=== PATIENT | female | born 1985 ===

== ENCOUNTER 2019-06-27 15:48 | Outpatient (CLI) | payer BC ==
--- NOTE | 2019-06-30 03:20 | Ultrasound Report ---
Reason: PAPILLARY CARCINOMA Procedure Date: 06/27/2019 Accession Number: [id number] / [id number] Procedure: US - Head or Neck Soft Tissue CPT Code: Final Report FULL RESULT: EXAM: THYROID ULTRASOUND EXAM DATE: 06/27/2019 04:26 PM. CLINICAL HISTORY: PAPILLARY CARCINOMA. COMPARISON: None. TECHNIQUE: Real time sonographic imaging of the thyroid was performed by the patient account liaison. Multiple treasury representative static images were saved for review. FINDINGS: THYROID GLAND: Status post thyroidectomy. No residual thyroid tissue is seen. No recurrent mass is present. LYMPH NODES: No adenopathy demonstrated in the central or lateral compartment. OTHER: None. IMPRESSION: No evidence of lymphadenopathy. Management recommendations are based on 2015 [place] [employer] Management Guidelines for Adult Patients with Thyroid Nodules and Differentiated Thyroid Cancer. RADIA
== END 2019-06-27 15:49 | disposition home or self-care (01) ==
LOC: DI 15:48
PROVIDERS: ATTEND Registered Nurse
DX: C73 Malignant neoplasm of thyroid gland (principal)
CPT/HCPCS: 76536

== ENCOUNTER 2019-07-16 15:27 | Outpatient (CLI) | payer BC ==
[2019-07-16 15:55] LABS: BASOPHILS % (AUTO) 0.6 %; EOSINOPHILS # (AUTO) 0.1 10^3/uL (0.0-0.7); EOSINOPHILS % (AUTO) 1.3 %; HGB - HEMOGLOBIN 13.4 g/dL (12.0-16.0); LYMPHOCYTES % (AUTO) 41.7 %; MEAN CORPUSCULAR HEMOGLOBIN 29.2 pg (27.0-31.0); MEAN CORPUSCULAR HGB CONC 32.8 g/dL (32.0-36.0); MEAN CORPUSCULAR VOLUME 88.9 fL (81.0-99.0); MEAN PLATELET VOLUME 9.8 fL (7.9-10.8); MONOCYTES # (AUTO) 0.4 10^3/uL (0.0-1.0); MONOCYTES % (AUTO) 4.9 %; NEUTROPHILS # (AUTO) 3.7 10^3/uL (1.5-6.6); NEUTROPHILS % (AUTO) 51.2 %; PLT - PLATELET COUNT 302 10^3/uL (130-450); RED BLOOD COUNT 4.59 10^6/uL (4.20-5.40); RED CELL DISTRIBUTION WIDTH 12.7 % (12.0-15.0); WHITE BLOOD COUNT 7.2 x10^3/uL (4.8-10.8)
[2019-07-16 16:01] LABS: ALBUMIN 4.1 g/dL (3.2-5.5); ALBUMIN/GLOBULIN RATIO 1.5 (1.0-2.2); BILIRUBIN,TOTAL 0.6 mg/dL (0.2-1.0); CALCIUM 9.1 mg/dL (8.5-10.3); TOTAL PROTEIN 6.8 g/dL (6.7-8.2)
== END 2019-07-16 15:28 | disposition home or self-care (01) ==
LOC: LAB 15:27
PROVIDERS: ATTEND Registered Nurse
DX: N63.0 Unspecified lump in unspecified breast (principal); C73 Malignant neoplasm of thyroid gland
CPT/HCPCS: 36415; 80053; 84443; 85025

== ENCOUNTER 2019-09-22 09:02 | Outpatient (CLI) | payer MEDICAID ==
--- NOTE | 2019-09-22 10:19 | Ultrasound Report ---
Reason: BREAST LUMP OR MASS Procedure Date: 09/22/2019 Accession Number: [id number] / [id number] Procedure: US - Breast Unilateral Limited CPT Code: Final Report FULL RESULT: EXAM: Breast Unilateral Limited Left DATE: 09/22/2019 9:57 AM CLINICAL HISTORY: BREAST LUMP OR MASS FOR FOLLOW-UP. Patient has a history of excision of 2 fibroadenomas from the left breast 2:00 position 4 cm from the nipple with one tiny residual nodule still present by ultrasound in this location. COMPARISON: Left breast ultrasound 02/05/2017, 02/12/2017, 09/10/2017, 04/19/2018, 11/26/2018. Mammogram 02/12/2017. TECHNIQUE: Targeted ultrasound was performed of the left breast in the area of clinical concern at 2 o'clock and 4 cm distance from the nipple. Color Doppler was employed as appropriate. FINDINGS: An ovoid 7 x 6 x 3 mm avascular hypoechoic nodule against the chest wall appears stable compared with the 11/26/2018 ultrasound. A second similar-appearing nodule is seen at the 3:30 position 4 cm from the nipple measuring 4 x 3 x 2 mm. No suspicious features are identified in either nodule. IMPRESSION: Probably benign findings left breast RECOMMENDATION: Follow-up left breast ultrasound in 12 months. BIRADS CATEGORY 3: Probably benign RADIA
== END 2019-09-22 09:03 | disposition home or self-care (01) ==
LOC: DI 09:02
PROVIDERS: ATTEND Registered Nurse
DX: N63.21 Unspecified lump in the left breast, upper outer quadrant (principal); N63.23 Unspecified lump in the left breast, lower outer quadrant
CPT/HCPCS: 76642

== ENCOUNTER 2019-10-07 08:00 | Outpatient (CLI) | payer MEDICAID | END 2019-10-07 23:59 | disposition home or self-care (01) | LOC: COV 08:00 | PROVIDERS: ATTEND Family Medicine | DX: R50.9 Fever, unspecified (principal) | CPT/HCPCS: 81599 ==

== ENCOUNTER 2020-10-07 09:51 | Outpatient (CLI) | payer MEDICAID ==
[2020-10-07 10:42] LABS: THYROID STIMULATING HORMONE 2.7 uIU/mL (0.34-5.60)
== END 2020-10-07 09:52 | disposition home or self-care (01) ==
LOC: LAB 09:51
PROVIDERS: ATTEND Registered Nurse
DX: E03.9 Hypothyroidism, unspecified (principal)
CPT/HCPCS: 36415; 84443

== ENCOUNTER 2021-01-31 13:17 | Outpatient (CLI) | payer MEDICAID ==
[2021-02-02 14:10] LABS: NIL 0.02 IU/mL; TB1-NIL 0.01 IU/mL; TB2-NIL 0.01 IU/mL
== END 2021-01-31 13:18 | disposition home or self-care (01) ==
LOC: LAB 13:17
PROVIDERS: ATTEND Emergency Medicine
DX: Z00.00 Encounter for general adult medical examination without abnormal findings (principal)
CPT/HCPCS: 86480

== ENCOUNTER 2021-03-14 12:22 | Emergency (ER) | payer MEDICAID ==
[2021-03-14 12:35] VITALS: BP 133/75
[2021-03-14] MEDS ORDERED: LIDOCAINE TOPICAL 4% 50 ML BOTTLE MM STA (13:10)
--- NOTE | 2021-03-14 13:36 | ED Physician Documentation ---
History of Present Illness - Stated complaint Stated Complaint: THROAT OBSTRUCTION - Chief complaint Chief Complaint: General - History obtained from History obtained from: Patient - History of Present Illness Pain level max: 3 Pain level now: 2 - Additonal information Additional information: Patient is a 35-year-old female who presents to the emergency department stating she feels like she has had a piece of cantaloupe stuck in her throat for the past 2 to 3 days. She states there is a burning sensation in the back of her throat. She is eating, drinking and speaking without difficulty. Worse with swallowing, nothing makes it better. Review of Systems Constitutional: denies: Fever, Chills GI: denies: Vomiting, Diarrhea Musculoskeletal: denies: Neck pain, Back pain Neurologic: denies: Headache PD PAST MEDICAL HISTORY - Past Medical History Past Medical History: Yes Cardiovascular: None Respiratory: None Neuro: Headaches Endocrine/Autoimmune: HyPOthyroidism GI: None METERMAN: Endometriosis : None HEENT: None Psych: None Musculoskeletal: None Derm: None - Present Medications Home Medications: Ambulatory Orders Medication Instructions Recorded Confirmed Clobetasol 0.05% Oint [Temovate 1 applic TOP BID 03/14/21 03/14/21 0.05% Oint] Levothyroxine [Synthroid] 112 mcg PO QDAC 03/14/21 03/14/21 Liothyronine [Cytomel] 5 mcg PO QDAC 03/14/21 03/14/21 - Allergies Allergies/Adverse Reactions: Allergies Allergy/AdvReac Type Severity Reaction Status Date / Time No Known Drug Allergies Allergy Verified 03/14/21 12:31 - Social History Does the pt smoke?: No Smoking Status: Never smoker Does the pt drink ETOH?: Yes Does the pt have substance abuse?: No - Immunizations Immunizations are current?: Yes PD ED PE NORMAL - Vitals Vital signs reviewed: Yes - General General: Alert and oriented X 3, No acute distress - HEENT HEENT: Moist mucous membranes, Pharynx benign - Neck Neck: Supple, no meningeal sign - Cardiac Cardiac: RRR - Respiratory Respiratory: No respiratory distress, Clear bilaterally - Derm Derm: Warm and dry - Neuro Neuro: Alert and oriented X 3 Results - Vitals Vitals: Vital Signs - 24 hr 03/14/21 12:31 Temperature 36.5 C Heart Rate 85 Respiratory 16 Rate Blood Pressure 133/75 H O2 Saturation 100 Oxygen O2 Source Room air PD MEDICAL DECISION MAKING - ED course Complexity details: considered differential, d/w patient ED course: Lidocaine was nebulized to numb the oropharynx. The glide scope was inserted and the vocal cords visualized. No visible foreign bodies. Patient tolerated well. We will continue supportive care at home. Symptoms resolved with the li docaine. Patient counseled regarding signs and symptoms for which I believe and urgent re-evaluation would be necessary. Patient with good understanding of and agreement to plan and is comfortable going home at this time This document was made in part using voice recognition software. While efforts are made to proofread this document, sound alike and grammatical errors may occur. Departure - Departure Disposition: 01 Home, Self Care Clinical Impression: Abrasion of pharynx Qualifiers: Encounter type: initial encounter Qualified Code(s): S10.11XA - Abrasion of throat, initial encounter Condition: Good Instructions: ED Abrasion Pharyngeal Follow-Up: Patricia Rangel ARNP [Primary Care Provider] - As Needed Comments: There is no foreign body visible today on your evaluation. This should improve over the next few days. Return if you worsen.
== END 2021-03-14 13:59 | disposition home or self-care (01) ==
LOC: ED 12:22
DX: S10.11XA Abrasion of throat, initial encounter (principal); X58.XXXA Exposure to other specified factors, initial encounter
CPT/HCPCS: 99282

== ENCOUNTER 2021-06-29 11:15 | Outpatient (CLI) | payer MEDICAID ==
[2021-06-29 11:40] LABS: BASOPHILS # (AUTO) 0.1 10^3/uL (0.0-0.1); BASOPHILS % (AUTO) 0.7 %; EOSINOPHILS # (AUTO) 0.4 10^3/uL (0.0-0.7); EOSINOPHILS % (AUTO) 6.2 %; HCT - HEMATOCRIT 44.8 % (37.0-47.0); HGB - HEMOGLOBIN 14.7 g/dL (12.0-16.0); LYMPHOCYTES # (AUTO) 2.4 10^3/uL (1.5-3.5); LYMPHOCYTES % (AUTO) 33.2 %; MEAN CORPUSCULAR HEMOGLOBIN 28.6 pg (27.0-31.0); MEAN CORPUSCULAR HGB CONC 32.8 g/dL (32.0-36.0); MEAN CORPUSCULAR VOLUME 87.2 fL (81.0-99.0); MEAN PLATELET VOLUME 9.9 fL (7.9-10.8); MONOCYTES # (AUTO) 0.4 10^3/uL (0.0-1.0); MONOCYTES % (AUTO) 5.1 %; NEUTROPHILS # (AUTO) 3.9 10^3/uL (1.5-6.6); NEUTROPHILS % (AUTO) 54.7 %; PLT - PLATELET COUNT 323 10^3/uL (130-450); RED BLOOD COUNT 5.14 10^6/uL (4.20-5.40); RED CELL DISTRIBUTION WIDTH 12.7 % (12.0-15.0); WHITE BLOOD COUNT 7.1 x10^3/uL (4.8-10.8)
[2021-06-29 11:51] LABS: ALBUMIN 4.2 g/dL (3.2-5.5); ALBUMIN/GLOBULIN RATIO 1.4 (1.0-2.2); BILIRUBIN,TOTAL 0.5 mg/dL (0.2-1.0); CALCIUM 9.3 mg/dL (8.5-10.3); CREATININE 0.9 mg/dL (0.4-1.0); POTASSIUM 4.1 mmol/L (3.5-5.0); TOTAL PROTEIN 7.1 g/dL (6.7-8.2)
[2021-06-29 12:06] LABS: THYROID STIMULATING HORMONE 0.5 uIU/mL (0.34-5.60)
== END 2021-06-29 11:16 | disposition home or self-care (01) ==
LOC: LAB 11:15
PROVIDERS: ATTEND Registered Nurse
DX: C73 Malignant neoplasm of thyroid gland (principal); Z13.228 Encounter for screening for other metabolic disorders; E03.9 Hypothyroidism, unspecified
CPT/HCPCS: 36415; 80053; 82306; 84443; 85025

== ENCOUNTER 2021-09-02 14:09 | Outpatient (CLI) | payer MEDICAID, OTHER ==
--- NOTE | 2021-09-04 15:48 | XRAY Report ---
PROCEDURE: Spine Scoliosis Study 2-3V INDICATIONS: SCOLIOSIS TECHNIQUE: Frontal and lateral standing views of the spine acquired. COMPARISON: None. FINDINGS: There is S-shaped scoliosis. The main curvature is in the thoracic spine measuring 25 degree toward right with apex at T9. Secondary left curvature is seen in lumbar spine measuring 17 degree with apex at L2-L3. Bone morphology: No developmental anomalies of the ribs or spine. 7 cervical vertebrae are present. 12 rib-bearing thoracic type vertebrae noted. 5 [id number] lumbar vertebrae are present. No s uspicious bony lesions. IMPRESSION: 1. Scoliosis measuring 25 degree with apex at T9. Reviewed by: Sharona Leahy MD on 09/04/2021 3:47 PM PST Approved by: Sharona Leahy MD on 09/04/2021 3:47 PM PST Station ID: [id number]
== END 2021-09-02 14:10 | disposition home or self-care (01) ==
LOC: DI.N 14:09
PROVIDERS: ATTEND Registered Nurse
DX: M41.9 Scoliosis, unspecified (principal)

== ENCOUNTER 2021-10-06 17:55 | Emergency (ER) | payer OTHER, MEDICAID ==
--- NOTE | 2021-10-06 17:57 | ED Physician Documentation ---
PD HPI UPPER EXT INJURY - Stated complaint Stated Complaint: NEEDLESTICK - History obtained from History obtained from: Patient - History of Present Illness Location: Left, Hand Type of injury: Puncture wound (she was placing used needle into sharp container and stuck tip into thenar area. No numbness nor weakness. 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 : None HEENT: None Psych: None Musculoskeletal: None Derm: None - Present Medications Home Medications: Ambulatory Orders Medication Instructions Recorded Confirmed Clobetasol 0.05% Oint [Temovate 1 applic TOP BID 03/14/21 03/14/21 0.05% Oint] Levothyroxine [Synthroid] 112 mcg PO QDAC 03/14/21 03/14/21 Liothyronine [Cytomel] 5 mcg PO QDAC 03/14/21 03/14/21 - Allergies Allergies/Adverse Reactions: Allergies Allergy/AdvReac Type Severity Reaction Status Date / Time No Known Drug Allergies Allergy Verified 10/06/21 18:06 - Social History Does the pt smoke?: No Smoking Status: Never smoker Does the pt drink ETOH?: Yes Does the pt have substance abuse?: No - Immunizations Immunizations are current?: Yes PD ED PE NORMAL - Vitals Vital signs reviewed: Yes - General General: Alert and oriented X 3, No acute distress, Well developed/nourished - Derm Derm: Normal color, Warm and dry - Extremities Extremities: Other (barely visible point injury of skin at thenar area. No bleeding. Not tender. ) - Neuro Neuro: Alert and oriented X 3, No motor deficit, No sensory deficit Results - Vitals Vitals: Vital Signs - 24 hr 10/06/21 18:02 Temperature 36.0 C L Heart Rate 88 Respiratory 16 Rate Blood Pressure 142/80 H O2 Saturation 100 Oxygen O2 Source Room air - Labs Labs: Laboratory Tests 10/06/21 10/06/21 18:13 18:13 WBC 7.2 RBC 5.05 Hgb 14.5 Hct 44.1 MCV 87.3 MCH 28.7 MCHC 32.9 RDW 12.5 Plt Count 353 MPV 9.9 Sodium 137 Potassium 3.5 Chloride 102 Carbon Dioxide 25 Anion Gap 10.0 BUN 12 Creatinine 0.9 Estimated GFR (MDRD) 71 L Glucose 145 H Calcium 9.2 Total Bilirubin 0.5 AST 18 ALT 19 Alkaline Phosphatase 40 L Total Protein 7.3 Albumin 4.3 Globulin 3.0 Albumin/Globulin Ratio 1.4 PD MEDICAL DECISION MAKING - ED course Complexity details: considered differential (the source patient for whom the IV was started was still in ER. 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 We did test the source patient for HIV and hepatitis and those should result in a day or 2. At this point the wound does not appear to need any particular dressings or attention. Recheck if it develops any signs of infection. Employee health will likely follow-up with you over the next few days. Discharge Date/Time: 10/06/21 18:31
[2021-10-06 18:06] VITALS: BP 142/80
[2021-10-06 18:22] LABS: HCT - HEMATOCRIT 44.1 % (37.0-47.0); HGB - HEMOGLOBIN 14.5 g/dL (12.0-16.0); MEAN CORPUSCULAR HEMOGLOBIN 28.7 pg (27.0-31.0); MEAN CORPUSCULAR HGB CONC 32.9 g/dL (32.0-36.0); MEAN CORPUSCULAR VOLUME 87.3 fL (81.0-99.0); MEAN PLATELET VOLUME 9.9 fL (7.9-10.8); RED BLOOD COUNT 5.05 10^6/uL (4.20-5.40); RED CELL DISTRIBUTION WIDTH 12.5 % (12.0-15.0); WHITE BLOOD COUNT 7.2 x10^3/uL (4.8-10.8)
[2021-10-06 18:33] LABS: ALBUMIN 4.3 g/dL (3.2-5.5); ALBUMIN/GLOBULIN RATIO 1.4 (1.0-2.2); BILIRUBIN,TOTAL 0.5 mg/dL (0.2-1.0); CALCIUM 9.2 mg/dL (8.5-10.3); CREATININE 0.9 mg/dL (0.4-1.0); POTASSIUM 3.5 mmol/L (3.5-5.0); TOTAL PROTEIN 7.3 g/dL (6.7-8.2)
[2021-10-08 09:31] LABS: HEPATITIS C ANTIBODY NON-REACTIVE (NON-REACTIVE)
[2021-10-10 16:41] LABS: HIV AG/AB 4TH GEN NON-REACTIVE (NON-REACTIVE)
== END 2021-10-06 18:31 | disposition home or self-care (01) ==
LOC: ED 17:55
DX: S61.432A Puncture wound without foreign body of left hand, initial encounter (principal); W46.1XXA Contact with contaminated hypodermic needle, initial encounter; Y93.F9 Activity, other caregiving; Y92.538 Other ambulatory health services establishments as the place of occurrence of the external cause; Y99.0 Civilian activity done for income or pay; Z77.9 Other contact with and (suspected) exposures hazardous to health
CPT/HCPCS: 36415; 80053; 85027; 86317; 86803; 87389; 99281; 99283

== ENCOUNTER 2021-12-07 11:00 | Outpatient (CLI) | payer BC, OTHER, MEDICAID ==
[2021-12-07 11:40] LABS: T4 (THYROXINE) 12.34 ug/dL (6.09-12.23)
[2021-12-07 11:44] LABS: THYROID STIMULATING HORMONE 0.35 uIU/mL (0.34-5.60)
== END 2021-12-07 11:01 | disposition home or self-care (01) ==
LOC: LAB 11:00
PROVIDERS: ATTEND Registered Nurse
DX: E03.9 Hypothyroidism, unspecified (principal)
CPT/HCPCS: 36415; 84436; 84443; 84480

== ENCOUNTER 2022-02-04 08:00 | Outpatient (CLI) | payer BC, MEDICAID, OTHER ==
--- NOTE | 2022-02-04 15:22 | XRAY Report ---
PROCEDURE: Wrist 3 View LT INDICATIONS: LEFT WRIST PAIN TECHNIQUE: 3 views of the wrist were acquired. COMPARISON: None FINDINGS: Bones: No fractures or dislocations. No suspicious bony lesions. Soft tissues: No suspicious soft tissue calcifications. IMPRESSION: No significant plain film abnormality is seen. If it would be helpful for clinical management decision making, please consider a dedicated, schedule d wrist MRI for further evaluation (assuming that there is no contraindication). This should be perf ormed according to the arthrogram protocol, if there is strong clinical concern for a ligamentous abn ormality. Reviewed by: Smooth Baptiste MD on 02/04/2022 2:20 PM QAMAR Approved by: Smooth Baptiste MD on 02/04/2022 2:20 PM QAMAR Station ID: [id number]
== END 2022-02-04 23:59 | disposition home or self-care (01) ==
LOC: DI.S 08:00
PROVIDERS: ATTEND Physician Assistant Medical
DX: M25.532 Pain in left wrist (principal)

== ENCOUNTER 2022-10-10 08:40 | Outpatient (CLI) | payer BC, MEDICAID ==
[2022-10-10 09:10] LABS: BASOPHILS # (AUTO) 0.1 10^3/uL (0.0-0.1); BASOPHILS % (AUTO) 0.8 %; EOSINOPHILS # (AUTO) 0.4 10^3/uL (0.0-0.7); EOSINOPHILS % (AUTO) 5.5 %; HCT - HEMATOCRIT 44.7 % (37.0-47.0); HGB - HEMOGLOBIN 14.5 g/dL (12.0-16.0); LYMPHOCYTES # (AUTO) 2.5 10^3/uL (1.5-3.5); LYMPHOCYTES % (AUTO) 37.6 %; MEAN CORPUSCULAR HEMOGLOBIN 28.9 pg (27.0-31.0); MEAN CORPUSCULAR HGB CONC 32.4 g/dL (32.0-36.0); MEAN CORPUSCULAR VOLUME 89.2 fL (81.0-99.0); MONOCYTES # (AUTO) 0.3 10^3/uL (0.0-1.0); MONOCYTES % (AUTO) 5.2 %; NEUTROPHILS # (AUTO) 3.4 10^3/uL (1.5-6.6); NEUTROPHILS % (AUTO) 50.7 %; PLT - PLATELET COUNT 335 10^3/uL (130-450); RED BLOOD COUNT 5.01 10^6/uL (4.20-5.40); RED CELL DISTRIBUTION WIDTH 12.4 % (12.0-15.0); WHITE BLOOD COUNT 6.6 x10^3/uL (4.8-10.8)
[2022-10-10 09:20] LABS: ALBUMIN 4.2 g/dL (3.2-5.5); ALBUMIN/GLOBULIN RATIO 1.5 (1.0-2.2); ALKALINE PHOSPHATASE 37 IU/L (42-121); ALT ALANINE AMINOTRANSFERASE 18 IU/L (10-60); AST ASPARTATE AMINOTRANSFERASE 21 IU/L (10-42); BILIRUBIN,TOTAL 0.6 mg/dL (0.2-1.0); BUN - BLOOD UREA NITROGEN 11 mg/dL (6-20); CALCIUM 9.2 mg/dL (8.5-10.3); CARBON DIOXIDE - CO2 25 mmol/L (21-32); CHLORIDE 106 mmol/L (101-111); CHOL/HDL RATIO 2.1 (<4.4); CHOLESTEROL 224 mg/dL; GFR - MDRD 63 (>89); GLUCOSE 100 mg/dL (70-100); HDL CHOLESTEROL 109 mg/dL; LDL CHOLESTEROL,CALCULATED 90 mg/dL; LDL/HDL RATIO 0.8 (<4.4); POTASSIUM 4.2 mmol/L (3.5-5.0); SODIUM 138 mmol/L (135-145); TRIGLYCERIDES 127 mg/dL; VLDL CHOLESTEROL 25 mg/dL
[2022-10-10 09:32] LABS: THYROID STIMULATING HORMONE 3.8 uIU/mL (0.34-5.60)
== END 2022-10-10 08:41 | disposition home or self-care (01) ==
LOC: LAB 08:40
PROVIDERS: ATTEND Registered Nurse
DX: E03.9 Hypothyroidism, unspecified (principal); Z79.899 Other long term (current) drug therapy; Z13.228 Encounter for screening for other metabolic disorders
CPT/HCPCS: 36415; 80053; 80061; 83721; 84443; 85025

== ENCOUNTER 2022-10-19 10:24 | Outpatient (CLI) | payer BC, MEDICAID ==
--- NOTE | 2022-10-19 17:03 | Ultrasound Report ---
PROCEDURE: Abdomen Complete INDICATIONS: ABD PAIN TECHNIQUE: Real-time scanning was performed of the abdominal and retroperitoneal organs, with image documentatio n. COMPARISON: None. FINDINGS: Liver: Liver is normal in size and homogeneous in echotexture. Gallbladder: Unremarkable. Biliary ducts: Intrahepatic bile ducts are non-dilated. Extrahepatic bile duct caliber measures 3.6 mm. Normal is 6-7 mm or less in diameter, or 10 mm or less post-cholecystectomy. Pancreas: Visualized portions of the pancreas are sonographically normal. Spleen: Spleen is normal in size and homogeneous in echotexture. Kidneys: Kidneys are normal in size and echotexture. Right kidney measures 10.8 cm long; left kidne y measures 10.6 cm long. No hydronephrosis or nephrolithiasis. No solid masses. No complex renal cy stic lesions which require follow-up. Aorta: Visualized aorta is normal in caliber at less than 3 cm. Iliacs: Proximal common iliac arteries are normal in caliber at less than 2.5 cm. IVC: Intrahepatic inferior vena cava is patent. Miscellaneous: No free abdominal fluid. IMPRESSION: Unremarkable ultrasound examination of abdomen. No finding to explain patient's symptoms. Reviewed by: Odell Pace MD on 10/19/2022 5:02 PM PDT Approved by: Odell Pace MD on 10/19/2022 5:02 PM PDT Station ID: [id number]
== END 2022-10-19 10:25 | disposition home or self-care (01) ==
LOC: DI 10:24
PROVIDERS: ATTEND Registered Nurse
DX: R10.12 Left upper quadrant pain (principal); Z86.19 Personal history of other infectious and parasitic diseases

== ENCOUNTER 2022-10-28 13:50 | Outpatient (CLI) | payer BC, MEDICAID ==
[2022-10-28 14:16] LABS: AMYLASE 79 U/L (28-100); LIPASE 43 U/L (22-51)
== END 2022-10-28 13:51 | disposition home or self-care (01) ==
LOC: LAB 13:50
PROVIDERS: ATTEND Registered Nurse
DX: R10.12 Left upper quadrant pain (principal)
CPT/HCPCS: 36415; 82150; 83690

== ENCOUNTER 2022-11-10 13:54 | Outpatient (CLI) | payer BC, MEDICAID | END 2022-11-10 13:55 | disposition home or self-care (01) | LOC: LAB.S 13:54 | PROVIDERS: ATTEND Registered Nurse | DX: R10.12 Left upper quadrant pain (principal) | CPT/HCPCS: 81599; 86677 ==

== ENCOUNTER 2023-05-10 08:00 | Outpatient (CLI) | payer OTHER, MEDICAID ==
[2023-05-10 20:52] LABS: BASOPHILS % (AUTO) 0.4 %; EOSINOPHILS # (AUTO) 0.1 10^3/uL (0.0-0.7); EOSINOPHILS % (AUTO) 1.4 %; HCT - HEMATOCRIT 42.1 % (37.0-47.0); HGB - HEMOGLOBIN 13.8 g/dL (12.0-16.0); LYMPHOCYTES # (AUTO) 3.2 10^3/uL (1.5-3.5); LYMPHOCYTES % (AUTO) 42.3 %; MEAN CORPUSCULAR HEMOGLOBIN 28.6 pg (27.0-31.0); MEAN CORPUSCULAR HGB CONC 32.8 g/dL (32.0-36.0); MEAN CORPUSCULAR VOLUME 87.2 fL (81.0-99.0); MEAN PLATELET VOLUME 10.4 fL (7.9-10.8); MONOCYTES # (AUTO) 0.4 10^3/uL (0.0-1.0); MONOCYTES % (AUTO) 4.7 %; NEUTROPHILS # (AUTO) 3.9 10^3/uL (1.5-6.6); NEUTROPHILS % (AUTO) 50.9 %; PLT - PLATELET COUNT 339 10^3/uL (130-450); RED BLOOD COUNT 4.83 10^6/uL (4.20-5.40); RED CELL DISTRIBUTION WIDTH 12.8 % (12.0-15.0); WHITE BLOOD COUNT 7.7 x10^3/uL (4.8-10.8)
[2023-05-10 21:10] LABS: ALBUMIN 4.3 g/dL (3.2-5.5); ALBUMIN/GLOBULIN RATIO 1.6 (1.0-2.2); BILIRUBIN,TOTAL 0.4 mg/dL (0.2-1.0); CALCIUM 9.1 mg/dL (8.5-10.3); CREATININE 0.9 mg/dL (0.6-1.3); POTASSIUM 3.8 mmol/L (3.5-4.5)
[2023-05-10 22:31] LABS: THYROID STIMULATING HORMONE 3.59 uIU/mL (0.34-5.60)
== END 2023-05-10 23:59 | disposition home or self-care (01) ==
LOC: LAB.N 08:00
PROVIDERS: ATTEND Specialist
DX: R10.12 Left upper quadrant pain (principal)
CPT/HCPCS: 36415; 80053; 82150; 83690; 84443; 85025